=== PATIENT | male | born 1970 | race Caucasian/White ===

== ENCOUNTER 2017-10-31 18:35 | Emergency (ER) | payer BC ==
[~2017-10-31] VITALS: Ht 177.8 cm; Wt 99.3 kg
--- NOTE | ~2017-10-31 | EKG ---
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
[~2017-10-31 18:35] MED LIST: ACETAMINOPHEN325 M1 PO; ASPIR 8181 MG PO; ATORVASTATIN CA80 MG PO; BRILINTA90 MG PO; CARVEDILOL12.5 MG PO; COZAAR 50 MG TA50 M1 PO; NICOTINE TRANSD21 M1 TRANSDERM; PROTONIX40 M1 PO; TYLENOL325 MG PO
[2017-10-31 19:18] LABS: ABSOLUTE NEUTROPHILS 4.5 thou/uL (1.4-8.2); BASOPHILS 0.7 % (0.0-2.0); EOSINOPHILS 2.3 % (0.0-3.0); HEMATOCRIT 46.2 % (42.0-52.0); HEMOGLOBIN 16.3 gm/dL (14.0-18.0); LYMPHOCYTES 28.5 % (24.0-44.0); MCH 32.6 pg (26.0-34.0); MCHC 35.2 g/dL (28.0-37.0); MCV 92.5 fL (80.0-100.0); MONOCYTES 10.3 % (1.0-8.0); PLATELET COUNT 209 thou/uL (150-400); POLYS 58.2 % (36.0-66.0); RDW 12.8 % (10.5-14.5); WBC 7.7 thou/uL (4.0-11.0)
[2017-10-31 19:37] LABS: CALCIUM 9.7 mg/dL (8.5-10.1); POTASSIUM 3.6 mmol/L (3.5-5.1)
[2017-10-31 19:42] LABS: TOTAL BILIRUBIN 0.9 mg/dL (<0.1-1.0); TOTAL PROTEIN 7.7 g/dL (6.4-8.2); TROPONIN-I 0.04 ng/mL (<0.06)
== END 2017-11-01 00:09 | disposition home or self-care (01) ==
LOC: ER 18:35
PROVIDERS: Emergency Medicine
DX: R07.89 Other chest pain (principal); I25.10 Atherosclerotic heart disease of native coronary artery without angina pectoris; I10 Essential (primary) hypertension; E78.5 Hyperlipidemia, unspecified; F32.9 Major depressive disorder, single episode, unspecified; M10.9 Gout, unspecified; I21.9 Acute myocardial infarction, unspecified; F17.210 Nicotine dependence, cigarettes, uncomplicated; Z95.5 Presence of coronary angioplasty implant and graft

== ENCOUNTER → 2018-10-22 | Outpatient (CLI) | payer BC | LOC: NUC 07:01 | DX: I25.10 Atherosclerotic heart disease of native coronary artery without angina pectoris (principal); I10 Essential (primary) hypertension; E78.5 Hyperlipidemia, unspecified; Z87.891 Personal history of nicotine dependence ==

== ENCOUNTER → 2019-04-29 | Outpatient (CLI) | payer OTHER ==
--- NOTE | 2019-04-29 11:20 | 2DMMODE ---
[facility] [place] [address] 2 D/M-MODE ECHOCARDIOGRAM Name: TERESITARENITA HERNANDEZ Room #: REG CL [facility]#: [id number] Admission: 04/29/19 Attend Phys: Mannie Somers MD Discharge: Date of : 72 Report #: [id number] THIS REPORT FOR: //name// APPROVED REPORT Study performed: 04/29/2019 10:30:03 EXAM: Comprehensive 2D, Doppler, and color-flow Echocardiogram Patient Location: Echo lab Status: routine BSA: 2.29 HR: 62 bpm BP: 120/78 mmHg Rhythm: NSR Other Information Study Quality: Adequate Indications CAD Cardiomyopathy Hypertension/HDD Hx NM, stent 2D Dimensions RVDd: 33.43 mm IVSd: 12.06 (7-11mm) LVOT Diam: 21.39 (18-24mm) LVDd: 44.08 mm PWd: 13.48 (7-11mm) Ascending Ao: 26.75 (22-36mm) LVDs: 31.19 (25-40mm) Aortic Root: 34.59 mm Volumes Left Atrial Volume (Systole) Single Plane 4CH: 45.31 mL Single Plane 2CH: 51.45 mL Aortic Valve AoV Peak Viktor.: 1.26 m/s AO Peak Gr.: 6.39 mmHg LVOT Max P.64 mmHg LVOT Max V: 0.95 m/s JAIMEE Vmax: 2.71 cm2 Mitral Valve [facility] [address] [place] [address] 2 D/M-MODE ECHOCARDIOGRAM Name: RENITA LO [facility] Room #: REG CL [facility]#: [id number] Admission: 04/29/19 Attend Phys: Mannie Somers MD Discharge: Date of : 72 Report #: [id number] E/A Ratio: 1.0 MV Decel. Time: 220.73 ms MV E Max Viktor.: 0.59 m/s MV A Viktor.: 0.58 m/s MV PHT: 64.01 ms IVRT: 121.11 ms Pulmonary Valve PV Peak Viktor.: 1.23 m/s PV Peak Gr.: 6.03 mmHg Pulmonary Vein P Vein S: 0.43 m/s P Vein A: 0.18 m/s P Vein D: 0.50 m/s P Vein A Dur.: 170.7 msec P Vein S/D Ratio: 0.86 Left Ventricle The left ventricle is normal size. Hypokinesis of distal anteroseptum and apical leiva. Mild concentric left ventricular hypertrophy. Left ventricular systolic function is mildly decreased. LVEF is 45%. Grade II - pseudonormal filling dynamics. Right Ventricle The right ventricle is normal size. The right ventricular systolic function is normal. Atria The left atrium size is normal. The right atrium size is normal. Aortic Valve The aortic valve is normal in structure. No aortic regurgitation is present. There is no aortic valvular stenosis. Mitral Valve The mitral valve is normal in structure. There is no mitral valve regurgitation noted. No evidence of mitral valve stenosis. Tricuspid Valve The tricuspid valve is normal in structure. Trace tricuspid regurgitation. Unable to assess PA pressure. Pulmonic Valve The pulmonary valve is normal in structure. Trace to mild pulmonic regurgitation. Great Vessels [facility] [address] [place] [address] 2 D/M-MODE ECHOCARDIOGRAM Name: RENITA LO [facility] Room #: REG [facility]#: [id number] Admission: 04/29/19 Attend Phys: Mannie Somers MD Discharge: Date of : 72 Report #: [id number] The aortic root is normal in size. IVC is normal in size and collapses >50% with inspiration. Pericardium There is no pericardial effusion. <Conclusion> The left ventricle is normal size. Mild concentric left ventricular hypertrophy. Left ventricular systolic function is mildly decreased. Hypokinesis of distal anteroseptum and apical leiva. The right ventricle is normal size. The left atrium size is normal. The aortic valve is normal in structure. There is no mitral valve regurgitation noted. Trace tricuspid regurgitation. <ELECTRONICALLY SIGNED> By: Mannie Somers MD 04/29/19 1120 19 Mannie Somers MD /ELISEO
== END ==
LOC: CV 10:14
DX: I37.1 Nonrheumatic pulmonary valve insufficiency (principal); I25.10 Atherosclerotic heart disease of native coronary artery without angina pectoris; I10 Essential (primary) hypertension; I25.2 Old myocardial infarction; Z95.5 Presence of coronary angioplasty implant and graft